=== PATIENT | male | born 2000 | race African-American/Black ===

== ENCOUNTER 2023-12-06 08:55 | Emergency (ER) | payer OTHER ==
[~2023-12-06] VITALS: Ht 180.3 cm; Wt 102.3 kg
[2023-12-06] MEDS ORDERED: NAPR-885 PO (10:57)
[2023-12-06] MEDS ORDERED: CYCL-707 PO (10:57)
[2023-12-06] MEDS ORDERED: diazePAM 5MG TABLET PO ONE (12:10)
[2023-12-06] MEDS ORDERED: LIDOCAINE 5% (LIDODERM) PATCH TD ONE (12:10)
[2023-12-06 12:46] LABS: BASO # 0.1 10^3/uL (0.0-0.2); BASO % 1.1 % (0.0-1.0); EOS # 0.1 10^3/uL (0.0-0.5); EOS % 2.5 % (0.0-3.0); HEMATOCRIT 42.1 % (42.0-52.0); HEMOGLOBIN 13.7 g/dl (13.5-17.5); LYMPH # 1.8 10^3/uL (1.5-5.0); LYMPH % 34.4 % (24.0-44.0); MEAN CORPUSCULAR HEMOGLOBIN 28.2 pg (27.0-33.0); MEAN CORPUSCULAR HGB CONC 32.5 g/dl (32.0-36.5); MEAN CORPUSCULAR VOLUME 86.8 fl (80.0-96.0); MONO # 0.5 10^3/uL (0.0-0.8); MONO % 9.2 % (2.0-8.0); NEUTROPHILS # 2.8 10^3/uL (1.5-8.5); NEUTROPHILS % 52.4 % (36.0-66.0); PLATELET COUNT, AUTOMATED 267 10^3/uL (150-450); RED BLOOD COUNT 4.85 10^6/uL (4.30-6.10); WHITE BLOOD COUNT 5.2 10^3/uL (4.0-10.0)
[2023-12-06] MEDS ORDERED: KETOROLAC 30 MG/ML 1ML VIAL IV ONE (12:56)
[2023-12-06 13:08] LABS: C REACTIVE PROTEIN QUANTITATIV < 0.40 MG/DL (<1.0)
[2023-12-06 13:10] LABS: ALKALINE PHOSPHATASE 81 U/L (46-116); ALT/SGPT 121 U/L (7.0-40); AST/SGOT 57 U/L (<34); BILIRUBIN,DIRECT 0.1 MG/DL (<0.4); BILIRUBIN,TOTAL 0.5 MG/DL (0.3-1.2); BLOOD UREA NITROGEN 20 MG/DL (9-23); CALCIUM LEVEL 9.5 MG/DL (8.5-10.1); CARBON DIOXIDE LEVEL 30 MMOL/L (20-31); CHLORIDE LEVEL 102 MMOL/L (98-107); CREATININE FOR GFR 1.17 MG/DL (0.70-1.30); ERYTHROCYTE SEDIMENTATION RATE 26 mm/hr (0-15); GLOMERULAR FILTRATION RATE > 60.0 (>60); GLUCOSE, FASTING 104 MG/DL (60-100); POTASSIUM SERUM 4.8 MMOL/L (3.5-5.1); SODIUM LEVEL 136 MMOL/L (136-145); TOTAL PROTEIN 7.8 G/DL (5.7-8.2)
[2023-12-06] MEDS ORDERED: ISOVUE-370 76% 100ML VIAL As Ordered ONE (13:22)
[2023-12-06] MEDS ORDERED: GABAPENTIN 300 MG CAP PO ONE (13:55)
[2023-12-06] MEDS ORDERED: MED REC IN PROGRESS XX SCH (15:30)
[2023-12-06 15:33] VITALS: BP 137/78; TEMP 97.3; O2SAT 100
[2023-12-06] MEDS ORDERED: GABA-282 PO (15:48)
[2023-12-06] MEDS ORDERED: ZINC220CA PO (15:48)
[2023-12-06] MEDS ORDERED: [UNRECOGNIZED DRUG - CODE] PO (15:48)
[2023-12-06] MEDS ORDERED: CALC500C16 PO (15:48)
[2023-12-06] MEDS ORDERED: MINO50CA3 PO (15:48)
[2023-12-06] MEDS ORDERED: HOME MED LIST COMPLETE! XX SCH (15:55)
[2023-12-06] MEDS ORDERED: METH-1165 PO (16:01)
[2023-12-06] MEDS ORDERED: NAPR-837 PO (16:01)
[2023-12-06] MEDS ORDERED: PRED10TA2 PO (16:01)
[2023-12-06] MEDS ORDERED: LIDO5DIS41 TD (16:01)
== END 2023-12-06 16:07 | disposition home or self-care (01) ==
LOC: M ED 08:55 → EDBD 08:55 → M ED 16:07
DX: M54.32 Sciatica, left side (principal); F17.290 Nicotine dependence, other tobacco product, uncomplicated; Z79.899 Other long term (current) drug therapy
CPT/HCPCS: 72193; 73502; 80048; 80076; 81001; 85025; 85379; 85652; 86140; 96374; 96375; 99284; J1100; J1885; Q9967